=== PATIENT | female | born 1970 | race Asian ===

== ENCOUNTER 2018-08-20 12:44 | Emergency (ER) | payer SELFPAY ==
[2018-08-20 12:47] VITALS: BP 156/88; PULSE 110; RESP 16; TEMP 37.4; O2SAT 99
--- NOTE | 2018-08-20 12:54 | DI.CT_ITS ---
SYMPTOMS/DIAGNOSIS: LEFT CHEST PAIN, PLEURITIC IN NATURE, TACHYCARDIC, ? PE AND DISSECTION CT SCAN OF THE CHEST: CT angiography was performed with multi slice acquisition and multi planar and 3D reconstruction. There is no evidence of a pulmonary embolus. The thoracic aorta is of normal caliber. No evidence of aneurysm or dissection is present. The heart size is within normal limits. No significant pericardial effusion is seen. No right ventricular dysfunction is present. No significant mediastinal, hilar or axillary adenopathy is present. No pleural effusion or pneumothorax is identified. Atelectatic changes are seen in the lungs. No focal consolidating infiltrate is seen. The tracheobronchial tree is unremarkable. The upper abdomen is grossly unremarkable. IMPRESSION: No acute pulmonary process. No evidence of a pulmonary embolus, thoracic aortic dissection or aneurysm. The findings were discussed with the Emergency Department on the date of the examination.
--- NOTE | 2018-08-20 12:56 | W.ED.GENAD ---
Discharge Plan Disposition Patient Disposition: HOME Condition: Good Discharge Details Chief Complaint: Chest Pain Clinical Impression: Chest pain, Muscle strain Primary Care Provider: Candice,Local ED Provider: Kana Mir Discharge Instructions Instructions: Chest Pain (ED), Muscle Strain (ED) Additional Instructions: Please use Tylenol and Motrin as needed for pain. If you notice any worsening of your symptoms, or any new symptoms such as vomiting, diarrhea, fever, chills, shortness of breath, worsening chest pain, numbness, weakness, or fainting , please return immediately to the emergency department for reevaluation. Please follow up with your primary care provider as soon as possible for reassessment and reevaluation. As always, it was a pleasure participating in your medical care today. Medical Decision Making This is a pleasant 47-year-old female who presents today for evaluation of left chest musculoskeletal pain. 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 However it worsened over the last 30 minutes without any significant exacerbating component. She has no cardiac history, no family history of cardiac disease, no cardiac risk factors. She was slightly tachycardic on arrival but this resolved on its own. She does not smoke or drink. She denies any drug use. Exam demonstrates notable reproducible pain on palpation of the left chest over the pectoralis major and minor muscle, and is made worse with movement of the left arm with radiation to the left chest. No evidence of significant orthopedic abnormality, no tenderness on palpation of the shoulder itself. Exam is otherwise notably unremarkable. CT angiogram was ordered to rule out dissection or PE, and this is been read as negative per radiology. No acute process. Laboratory work-up is benign and all within normal limits. Serial troponins are both normal, serial EKGs are normal. Patient states that she feels very well at this time and feels that she is ready to go home. Signs and symptoms appear clinically consistent with musculoskeletal chest pain secondary to straining during her job at work. Suggest continue Tylenol, Motrin and heating pad at home. Signs and symptoms at this time are clinically inconsistent with ACS. We discussed red flags which to return, patient understands. I have extensively reviewed the treatment plan and discharge instructions with the patient. I have addressed all patient concerns at this time. The patient was made aware of what symptoms to monitor for that would warrant a return to the emergency department. Discussed the plan with the patient, they demonstrate verbal understanding and agreement with our assessment and plan at this time. EKG 12: 50 Rate 108, QTc 453, sinus tachycardia, no significant ST elevations or depressions, inverted T wave in V1 and V2, T wave flattening in lead III. No Q waves. EKG 15: 56 Rate 61, intervals normal, sinus rhythm, no significant ST elevations or depressions, inverted T wave in V1 and V2 which is unchanged, no evidence of STEMI. No significant Q waves. No evidence of ACS. Exam(s) a CT:CT chest PE CTA SYMPTOMS/DIAGNOSIS: LEFT CHEST PAIN, PLEURITIC IN NATURE, TACHYCARDIC, ? PE AND DISSECTION CT SCAN OF THE CHEST: CT angiography was performed with multi slice acquisition and multi planar and 3D reconstruction. There is no evidence of a pulmonary embolus. The thoracic aorta is of normal caliber. No evidence of aneurysm or dissection is present. The heart size is within normal limits. No significant pericardial effusion is seen. No right ventricular dysfunction is present. No significant mediastinal, hilar or axillary adenopathy is present. No pleural effusion or pneumothorax is identified. Atelectatic changes are seen in the lungs. No focal consolidating infiltrate is seen. The tracheobronchial tree is unremarkable. The upper abdomen is grossly unremarkable. IMPRESSION: No acute pulmonary process. No evidence of a pulmonary embolus, thoracic aortic dissection or aneurysm. The findings were discussed with the Emergency Department on the date of the examination. HPI General Date/Time Provider Initiated Documentation: 08/20/18 12:45. HPI Narrative: This is a pleasant 47-year-old female with no past medical history who presents today for evaluation of left upper chest wall pain. The patient states that for the last 3 to 4 hours she has had left upper chest wall pain. It initially started when she was pushing a patient, however it got worse over the last 30 minutes without any significant aggravating factor. She describes it as sharp and tight. Worse when she moves her left arm. There is a mild pleuritic component, but not as bad when she moves her arm. She denies any cough, shortness of breath, fever, chills, or chest heaviness. She denies any personal history of cardiac disease, family history of cardiac disease, history of blood clots, or other abnormalities. She denies any direct trauma to her chest. She denies any numbness or tingling or pain in her arm neck or shoulder. She denies any other complaints at this time. She did take 3 aspirin and this did slightly improve her pain roughly 30 to 40 minutes later. She does have a history of mild GERD, but states that this does not feel similar to that. Denies PE risk factors such as recent long car rides, immobilization, recent surgery, prior history of DVT or PE, family history of PE or DVT, morbid obesity, exogenous estrogen and smoking, hemoptysis, history of cancer. Related Data Allergies Allergy/AdvReac Type Severity Reaction Status Date / Time oxycodone AdvReac Severe knocks me Unverified 08/20/18 13:43 out pollen extracts AdvReac Mild Unverified 08/20/18 13:43 General Stated Complaint: Chest Pain NORY: 2 Review of Systems Review of Systems All systems reviewed & are unremarkable except as noted in HPI and below PFSH Social History Smoking/Tobacco Use Status: Never Alcohol Intake: never Drug use: Never Substance use type: does not use Do you feel safe at home: Yes Do you feel safe in your relationship?: Yes Exam Narrative Exam Narrative: 1.Const: Well-nourished, Well-developed, appearing stated age 2.Eyes: PERRL, no conjunctival injection, and symmetrical lids. 3.ENT: Atraumatic external nose and ears. Moist MM. Neck: Symmetric, trachea midline, No thyromegaly. 4.CVS: +S1/S2, No murmurs or gallops. Peripheral pulses 2+ and equal in all extremities. Brisk capillary refill in all extremities. Reproducible chest wall pain over the pectoralis major muscle. No evidence of bruising, dislocation or other abnormality. Radial pulses +2 bilaterally. 5.RESP: Unlabored respiratory effort. Clear to auscultation bilaterally. No wheezes rales or rhonchi 6.GI: Soft, Nontender/Nondistended, No hepatosplenomegaly. No guarding or rebound. 7.MSK: Normocephalic/Atraumatic, Extremities w/o deformity or ttp No cyanosis or clubbing, Normal movement of all extremities. Movement of the left upper extremity demonstrates slight worsening of the pain, particularly with the use of the pectoralis muscles. No evidence of weakness or deformity. 8.Skin: Warm, Dry. No rashes or lesions. 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 Sensation grossly intact, no focal neurologic deficits. 10.Psych: (AAO) x3. Appropriate mood and affect Course Vital Signs Temperature 37.4 C 08/20/18 12:47 Pulse 110 H 08/20/18 12:47 Respiratory Rate 16 08/20/18 12:47 Blood Pressure 156/88 H 08/20/18 12:47 Pulse Oximetry 99 08/20/18 12:47 Temperature 37.4 C 08/20/18 12:47 Temperature Source Skin 08/20/18 12:47 Pulse 110 H 08/20/18 12:47 Respiratory Rate 16 08/20/18 12:47 Blood Pressure 156/88 H 08/20/18 12:47 Pulse Oximetry 99 08/20/18 12:47 Oxygen Delivery Method Room Air 08/20/18 12:47 Oxygen Flow Rate 0 08/20/18 12:47 Pain Level 6 08/20/18 12:47
[2018-08-20] MEDS: Normal Saline 1,000 ML 1000 ML IV (13:06)
[2018-08-20 13:09] VITALS: TEMP 37.4
[2018-08-20] MEDS: Acetaminophen 500 MG TAB 1000 MG PO (13:09)
[2018-08-20 13:22] LABS: INR 0.9 (0.9-1.1); PTT Activated 22.9 sec (21.0-31.4); Prothrombin Time 9.4 sec (9.3-11.0)
[2018-08-20 13:36] LABS: Abs Immature Grans 0.03 k/cumm (0.0-0.09); Absolute Basophil Count 0.07 k/cumm (0.0-0.2); Absolute Eosinophil Count 0.07 k/cumm (0.0-0.7); Absolute Lymphocyte Count 3.71 k/cumm (1.2-3.4); Absolute Monocyte Count 0.72 k/cumm (0.11-0.7); Absolute Neutrophil Count 6.96 k/cumm (1.2-6.7); Basophils % 0.6; Eosinophils % 0.6; HCT 39.7 % (36.0-46.0); HGB 14.3 g/dL (12.0-15.5); Immature Grans % 0.3; Lymphocytes % 32.1; Mean Corpuscular Hemoglobin 30.2 pg (27.0-33.0); Mean Corpuscular Volume 83.9 fL (80-95); Mean Platelet Volume 9.7 fL (8.0-11.0); Monocytes % 6.2; Neutrophils % 60.2; Platelet Count 385 x1000/uL (130-400); RBC 4.73 m/cumm (4.00-5.20); RBC Distribution Width 14.5 % (11.7-14.6); White Blood Cell Count 11.56 k/cumm (4.4-10.8)
[2018-08-20 13:40] LABS: ALT 32 U/L (12-78); AST 22 U/L (15-37); Alkaline Phosphatase 94 U/L (46-116); Anion Gap 10.7 mmol/L (3-11); BUN 9 mg/dL (7-18); Bilirubin, Total 0.5 mg/dL (0.2-1.0); CO2 25.3 mmol/L (21.0-32.0); CREATININE 0.56 mg/dL (0.55-1.02); Calcium 8.9 mg/dL (8.5-10.1); Chloride 103 mmol/L (98-107); Glucose 127 mg/dL (70-100); Potassium 3.7 mmol/L (3.5-5.1); Sodium 139 mmol/L (136-145); Total Protein 8.4 g/dL (6.4-8.2)
[2018-08-20 13:41] LABS: Troponin I < 0.02 ng/mL (0.00-0.06)
[2018-08-20] MEDS: Omnipaque 350 MG/ML 100 ML BTL IJ (14:59)
[2018-08-20 15:44] VITALS: BP 122/77; PULSE 63; RESP 14; TEMP 36.6; O2SAT 99
[2018-08-20 16:26] LABS: Troponin I < 0.02 ng/mL (0.00-0.06)
== END 2018-08-20 16:50 | disposition home or self-care (01) ==
LOC: ER 16:46
PROVIDERS: Emergency Provider Student in an Organized Health Care Education/Training Program
DX: R07.89 Other chest pain (principal); S29.011A Strain of muscle and tendon of front wall of thorax, initial encounter; X50.9XXA Other and unspecified overexertion or strenuous movements or postures, initial encounter; Y99.0 Civilian activity done for income or pay
CPT/HCPCS: 36415; 71275; 80053; 81025; 93005; 96361; 96374; 99285; 84484; 85025; 85610; 85730; 93010; 99284; J1885; J3490